=== PATIENT | female | born 1955 | race Two or more races ===

== ENCOUNTER 2024-11-06 13:24 | Outpatient (AMB) | payer MEDICARE, MEDICAID, SELFPAY ==
--- NOTE | 2024-11-06 13:56 | ORTHONT_ITS ---
Vital signs 11/06/24 13:57 Height 1.55 m Height Method Stated Weight 81.448 kg Weight Measurement Method Standing Scale BMI 33.9 BP 126/81 Blood Pressure Source Automatic Cuff Blood Pressure Location Left Upper Arm Position Sitting Respiration 18 Pulse 0 L Pulse Source Monitor Temp 97.6 F Temp Source Temporal Artery Scan Pulse Oximetry (%) 97 Oxygen Delivery Method Room Air Med/Allergies Allergies & Medications Allergies No Known Allergies Allergy (Verified 11/06/24 13:58) Medication Reconciliation atorvastatin 20 mg tablet 20 mg PO QDAY 09/11/21 [History Confirmed 11/06/24] losartan 25 mg tablet 25 mg PO QDAY 09/11/21 [History Confirmed 11/06/24] Exam Exam Patient is in no acute distress and is cooperative with the examination today. Breathing is nonlabored. In no respiratory distress. Bilateral extremities were evaluated and demonstrates sensation intact to light touch. Palpable pedal pulses are present. No significant edema is present. Bilateral hips were examined. The patient has no pain with log roll of the hips. Internal rotation to 30 degrees and external rotation to 30 degrees is painless. Negative FADIR. The left knee was examined. The left knee is in varus alignment. Range of motion from 0-115 degrees. Knee is stable to varus and valgus as well as AP translation with <5mm. Patient has a negative McMurrays. There is no pain with patellofemoral compression and no crepitus noted. The knee is tender to palpation medially. The right knee was also examined. The right knee is in varus alignment. Range of motion from 0-120 degrees. Knee is stable to varus and valgus as well as AP translation with <5mm. Patient has a negative McMurrays. There is no pain with patellofemoral compression and no crepitus noted. The knee is tender to palpation medially. I have x-rays from 2 years ago. This demonstrates left knee arthritis of significant severity and complete joint space obliteration medially. Assessment and Plan Problem List (1) Arthritis of left knee: Status: Acute Plan: Patient is a 69-year-old female with left knee pain and left knee arthritis of significant severity. She has failed conservative treatment including over 6 injections, anti-inflammatories, and formal physical therapy for several months which only increased the pain. She reports that she would like to consider getting a total knee replacement. I would like to get new x-rays as the last ones are several years old but did demonstrate [id number] arthritis. We discussed total knee replacement in great detail today. I would like to still get new x-rays to see what it currently looks like The nature and purpose of the total knee replacement, alternative method(s) of treatment, the material risks involved, and the possibility of complications were fully explained to the patient. The patient does NOT have any of the following contraindications to TKA: - Active infection of the knee joint, OR - Active systemic bacteremia, OR - Active skin infection or open wound at surgical site, OR - Neuropathic arthritis, OR - Severe, rapidly progressive neurological disease, OR - Severe medical condition that makes risks of surgery outweigh the potential benefit The patient was told the most common risks and complications associated with a total knee replacement include, but are not limited to: blood clots in the leg, fatal pulmonary embolism, dislocation of the prosthesis, intraoperative and postoperative fractures of the femur or tibia, infection, failure of the prosthesis or grafting materials, complications from anesthesia, reactions to blood transfusions, postoperative leg length inequality, instability of the knee replacement, nerve damage or injury, vascular injury, delayed wound healing, infection, other injury or even . In addition, there are risks associated with anesthesia given during this operation. Also, the patient was told that after undergoing a total knee replacement there may still be persistent pain or disability. The patient was informed that the success of this operation in part depends upon the mechanical devices which are going to be implanted and that these devices can fail or malfunction, and may need to be repaired or replaced and there are no guarantees as to the longevity of this device or its parts and that it or its parts could fail prematurely. The patient was also notified that during the course of surgery, there may be a need to use bone graft from donors, and that any bone graft used will be carefully screened for communicable diseases, including AIDS, hepatitis, Te-Creutzfeldt, or other diseases, but despite the screening procedures, there is a small chance that they could contract one of these diseases. Finally, the patient was asked to follow completely and fully with all advice and recommended treatments, and that recovery and ultimate outcome are affected by their compliance with recommended treatment. We discussed the risks, benefits and treatment alternatives, and the patient is interested in proceeding with surgery. We will try to set this up as expeditiously as possible. Advanced Care Planning Discussion Advance care planning discussed with:: patient and child Office Procedures GNS Level of Care Nursing/Assessment Patient Status: Initial/New Patient Nursing Assessment/Reassesment: Medication Reconciliation, Update PMH in EMR and Vital Signs Coordination of Care: Complex Care and Chronic Disease 1-5, Education Complex Pt/Fam, Consent,records obtained, informed consent, 1 Ins Authorization, Lab and Imaging orders, Results/Orders obtained and Staff clarify orders New Patient Charge New Patient Point Assignment: 1124 New Patient Point Charge: INSTRUMENTATION AND CONTROL TECHNICIAN Level 4 (3059-8303) MA Intake Visit Data Collection New Patient or Established: Established Patient (seen at [facility] within 3 years) Reason for Visit:: BL KNEE PAIN Seen by Clinical Staff ONLY (RN/MA): No Waiter/Waitress Informal Required: Yes PCP or OBGYN visit in last 3 months: Yes Hx Now: No Do You Feel Safe at Home: Yes Authorities Contacted: N/A Questionairres Past Medical History Past Medical History Have you ever been diagnosed with any of the following: Neurological Problems Seizures: No Cardiology Problems Hypercholesterolemia: Yes (TAKES MED) Congestive Heart Failure: No Edema: No Cellulitis: No Hypertension: Yes (TAKES MED) Varicose Veins: No Respiratory Problems Chronic Obstructive Pulmonary Disease (COPD): No Pneumonia: No Tuberculosis: No Sleep Apnea: No Smoking: No Smoking Exposure: No Stomache/Intestinal Problems Hepatitis: No Pancreatitis: No Gall Bladder Disease: No Hemorrhoids: No Gastroesophageal Reflux Disease: No Obesity: Yes Genital/Urinary Problems Renal Disease: No Reproductive Problems Previous Pregnancies: Yes (X7) Head,Eye,Nose,Throat Problems Cataracts: Yes ([facility]ARMITA WILL COME IN FOR LEFT EYE SURG) Endocrine Problems Diabetes Mellitus Type 1: Yes Diabetes Mellitus Type 2: No Other Problems Hospitalization: No Shingles: No Falls: No Blood Transfusions: No Blood Transfusion Reaction: No Anesthesia Reactions: No Chemotherapy: No Radiation Therapy: No MRSA: No Chicken Pox: No Measles: No Mumps: No Cancer: No Surgical History Pacemaker: No Subjective Visit Visit for: new patient and knee Immunization / Flu Flu Vaccine in the Last 12 Months: Yes Flu Vaccine Exclusion Criteria: Already Received History of Present Illness Chief complaint: Bilateral knee pain Patient is a pleasant 69-year-old female with a left greater than right knee pain that has been ongoing for several years. She has tried over 6 injections, ibuprofen, and formal physical therapy for several months. The pain continues to persist. She would like to discuss surgical options as she has tried everything for several years already. Pain Pain level (0-10): 6 Pain duration: CONSTANT Pain location: inside (medial), outside (lateral), anterior and posterior Pain quality: dull and aching Pain timing: increases with activity Ambulatory data Ambulatory device: none Treatments Number of previous injections: 6 Improvement with previous injections: No Number of Physical Therapy sessions: 12 Improvement with PT: No Improvement with NSAIDS: no Review of Systems Review of Systems: All systems negative unless otherwise noted in HPI.
[2024-11-06 13:57] VITALS: BP 126/81; PULSE 0; RESP 18; TEMP 36.4; O2SAT 97; BMI 33.9
--- NOTE | 2024-11-06 13:58 | XR_ITS ---
Examination: Bilateral knees 2 views Right lateral knee left lateral knee 2 views Bilateral axial knees single view TECHNIQUE: Bilateral AP knees standing single view, bilateral PA knees standing single view flexion Standing right lateral knee left lateral knee 2 views Bilateral axial knees single view total 5 views Date and time: November 06, 2024 1443 hours Comparison November 11, 2022 FINDINGS: Moderate osteopenia Moderate narrowing medial joint space right knee Moderate osteoarthritis right patellofemoral joint Advanced narrowing medial joint space left knee Significant osteoarthritis lateral and left patellofemoral joint IMPRESSION: Advanced narrowing medial joint space left knee Significant osteoarthritis lateral and left patellofemoral joints
== END 2024-11-06 14:07 | disposition home or self-care (01) ==
LOC: HODSRG 13:24
PROVIDERS: PCP Physician Assistant Medical; Referring Provider Physician Assistant Medical; Supervising Provider Orthopaedic Surgery Adult Reconstructive Orthopaedic Surgery; Visit Provider Orthopaedic Surgery Adult Reconstructive Orthopaedic Surgery
DX: M17.12 Unilateral primary osteoarthritis, left knee (principal); M25.562 Pain in left knee; I10 Essential (primary) hypertension; E78.00 Pure hypercholesterolemia, unspecified; E10.9 Type 1 diabetes mellitus without complications
CPT/HCPCS: 73564; 99204; G0463

== ENCOUNTER 2024-11-29 09:41 | Outpatient (AMB) | payer MEDICARE, MEDICAID, SELFPAY ==
[2024-11-29 09:51] VITALS: BP 148/87; PULSE 61; RESP 18; TEMP 36.4; O2SAT 97; BMI 33.0
--- NOTE | 2024-11-29 09:51 | PD.ORTHCLVIS ---
Vital signs 11/29/24 09:51 Height 1.55 m Height Method Stated Weight 79.464 kg Weight Measurement Method Standing Scale BMI 33.0 BP 148/87 H Blood Pressure Source Automatic Cuff Blood Pressure Location Right Upper Arm Position Sitting Respiration 18 Pulse 61 Pulse Source Monitor Temp 97.5 F Temp Source Temporal Artery Scan Pulse Oximetry (%) 97 Oxygen Delivery Method Room Air Med/Allergies Allergies & Medications Allergies No Known Allergies Allergy (Verified 11/29/24 10:01) Medication Reconciliation atorvastatin 20 mg tablet 20 mg PO QDAY 09/11/21 [History Confirmed 11/29/24] losartan 25 mg tablet 25 mg PO QDAY 09/11/21 [History Confirmed 11/29/24] Exam Exam Patient is in no acute distress and is cooperative with the examination today. Breathing is nonlabored. In no respiratory distress. Bilateral extremities were evaluated and demonstrates sensation intact to light touch. Palpable pedal pulses are present. No significant edema is present. Bilateral hips were examined. The patient has no pain with log roll of the hips. Internal rotation to 30 degrees and external rotation to 30 degrees is painless. Negative FADIR. The left knee was examined. The left knee is in varus alignment. Range of motion from 0-115 degrees. Knee is stable to varus and valgus as well as AP translation with <5mm. Patient has a negative McMurrays. There is no pain with patellofemoral compression and no crepitus noted. The knee is tender to palpation medially. The right knee was also examined. The right knee is in varus alignment. Range of motion from 0-120 degrees. Knee is stable to varus and valgus as well as AP translation with <5mm. Patient has a negative McMurrays. There is no pain with patellofemoral compression and no crepitus noted. The knee is tender to palpation medially. I have x-rays from 2 years ago. This demonstrates left knee arthritis of significant severity and complete joint space obliteration medially. Assessment and Plan Problem List (1) Arthritis of left knee: Status: Acute Plan: Patient is a 69-year-old female with left knee pain and left knee arthritis of significant severity. She has failed conservative treatment including over 6 injections, anti-inflammatories, and formal physical therapy for several months which only increased the pain. She has significant left knee arthritis on xray The nature and purpose of the total knee replacement, alternative method(s) of treatment, the material risks involved, and the possibility of complications were fully explained to the patient. The patient does NOT have any of the following contraindications to TKA: - Active infection of the knee joint, OR - Active systemic bacteremia, OR - Active skin infection or open wound at surgical site, OR - Neuropathic arthritis, OR - Severe, rapidly progressive neurological disease, OR - Severe medical condition that makes risks of surgery outweigh the potential benefit The patient was told the most common risks and complications associated with a total knee replacement include, but are not limited to: blood clots in the leg, fatal pulmonary embolism, dislocation of the prosthesis, intraoperative and postoperative fractures of the femur or tibia, infection, failure of the prosthesis or grafting materials, complications from anesthesia, reactions to blood transfusions, postoperative leg length inequality, instability of the knee replacement, nerve damage or injury, vascular injury, delayed wound healing, infection, other injury or even . In addition, there are risks associated with anesthesia given during this operation. Also, the patient was told that after undergoing a total knee replacement there may still be persistent pain or disability. The patient was informed that the success of this operation in part depends upon the mechanical devices which are going to be implanted and that these devices can fail or malfunction, and may need to be repaired or replaced and there are no guarantees as to the longevity of this device or its parts and that it or its parts could fail prematurely. The patient was also notified that during the course of surgery, there may be a need to use bone graft from donors, and that any bone graft used will be carefully screened for communicable diseases, including AIDS, hepatitis, Te-Creutzfeldt, or other diseases, but despite the screening procedures, there is a small chance that they could contract one of these diseases. Finally, the patient was asked to follow completely and fully with all advice and recommended treatments, and that recovery and ultimate outcome are affected by their compliance with recommended treatment. We discussed the risks, benefits and treatment alternatives, and the patient is interested in proceeding with surgery. We will try to set this up as expeditiously as possible. Advanced Care Planning Discussion Advance care planning discussed with:: patient and child Office Procedures GNS Level of Care Nursing/Assessment Patient Status: Established Patient Nursing Assessment/Reassesment: Medication Reconciliation, Update PMH in EMR and Vital Signs Coordination of Care: Complex Care and Chronic Disease 1-5, Education Complex Pt/Fam, Consent,records obtained, informed consent, 2-3 Insurance Autorizations needed, Results/Orders obtained and Staff clarify orders Special Needs: Language special needs Established Patient Charge Established Patient Point Assignment: 115 Established Patient Point Charge: EP Level 3 (80-115) MA Intake Visit Data Collection New Patient or Established: Established Patient (seen at [facility] within 3 years) Reason for Visit:: PRE-OP LEFT TKA Seen by Clinical Staff ONLY (RN/MA): No Verbal consent obtained for Telemed visit?: No Fire Loss Prevention Engineer Required: No PCP or OBGYN visit in last 3 months: Yes Hx Now: No Do You Feel Safe at Home: Yes Authorities Contacted: N/A Questionairres Past Medical History Past Medical History Have you ever been diagnosed with any of the following: Neurological Problems Seizures: No Cardiology Problems Hypercholesterolemia: Yes (TAKES MED) Congestive Heart Failure: No Edema: No Cellulitis: No Hypertension: Yes (TAKES MED) Varicose Veins: No Respiratory Problems Chronic Obstructive Pulmonary Disease (COPD): No Pneumonia: No Tuberculosis: No Sleep Apnea: No Smoking: No Smoking Exposure: No Stomache/Intestinal Problems Hepatitis: No Pancreatitis: No Gall Bladder Disease: No Hemorrhoids: No Gastroesophageal Reflux Disease: No Obesity: Yes Genital/Urinary Problems Renal Disease: No Reproductive Problems Previous Pregnancies: Yes (X7) Head,Eye,Nose,Throat Problems Cataracts: Yes ([facility] WILL COME IN FOR LEFT EYE SURG) Endocrine Problems Diabetes Mellitus Type 1: Yes Diabetes Mellitus Type 2: No Other Problems Hospitalization: No Shingles: No Falls: No Blood Transfusions: No Blood Transfusion Reaction: No Anesthesia Reactions: No Chemotherapy: No Radiation Therapy: No MRSA: No Chicken Pox: No Measles: No Mumps: No Cancer: No Surgical History Pacemaker: No Subjective Visit Visit for: new patient and knee Immunization / Flu Flu Vaccine in the Last 12 Months: Yes Flu Vaccine Exclusion Criteria: Already Received History of Present Illness Chief complaint: Bilateral knee pain Patient is a pleasant 69-year-old female with a left greater than right knee pain that has been ongoing for several years. She has tried over 6 injections, ibuprofen, and formal physical therapy for several months. The pain continues to persist. The pain is miserable and she would like to proceed with surgery Personal History Red flag PMH: BMI BMI Counceling provided: Yes Pain Pain level (0-10): 6 Pain duration: CONSTANT Pain location: inside (medial), outside (lateral), anterior and posterior Pain quality: dull and aching Pain timing: increases with activity Ambulatory data Ambulatory device: cane Treatments Number of previous injections: 6 Improvement with previous injections: No Number of Physical Therapy sessions: 12 Improvement with PT: No Improvement with NSAIDS: no Review of Systems Review of Systems: All systems negative unless otherwise noted in HPI.
== END 2024-11-29 10:04 | disposition home or self-care (01) ==
LOC: HODSRG 09:41
PROVIDERS: PCP Physician Assistant Medical; Referring Provider Physician Assistant Medical; Supervising Provider Orthopaedic Surgery Adult Reconstructive Orthopaedic Surgery; Visit Provider Orthopaedic Surgery Adult Reconstructive Orthopaedic Surgery
DX: M17.12 Unilateral primary osteoarthritis, left knee (principal); M25.562 Pain in left knee; I10 Essential (primary) hypertension; E78.00 Pure hypercholesterolemia, unspecified; E10.9 Type 1 diabetes mellitus without complications
CPT/HCPCS: 99213; G0463

== ENCOUNTER → 2024-11-30 | Outpatient (CLI) | payer MEDICARE, MEDICAID, SELFPAY ==
--- NOTE | 2024-11-30 08:46 | XR_ITS ---
Examination: CT left lower extremity, without contrast. 2-D sagittal reconstructions. 2-D coronal reconstructions. 3-D reconstructions. Date and time of exam:November 30, 2024 0932 hours INDICATIONS: Chronic left knee pain, diagnosis left knee unilateral osteoarthritis several years CTDI: vol (mGy):27.8 DLP: (mGycm):978 Technique: Multiple 1.25 mm axial sections of the left lower extremity without intravenous contrast have been obtained. 2-D sagittal and coronal reconstructions have been obtained. 3-D reconstructions have been obtained. Low dose protocols were performed. One or more of the following dose reduction techniques were used; automated exposure control, adjustment of the mA and/or KV according to patient size, use of iterative reconstruction technique. Findings: Prominent osteopenia Mild to moderate narrowing hip joints bilaterally Severe narrowing medial joint space left knee Significant osteoarthritis lateral patellofemoral joints No fractures IMPRESSION: Severe narrowing medial joint space left knee Significant osteoarthritis lateral and patellofemoral joints left knee is
== END | disposition home or self-care (01) ==
LOC: CDIM 07:22
PROVIDERS: PCP Physician Assistant Medical; Referring Provider Orthopaedic Surgery Adult Reconstructive Orthopaedic Surgery; Visit Provider Orthopaedic Surgery Adult Reconstructive Orthopaedic Surgery
DX: M17.12 Unilateral primary osteoarthritis, left knee (principal)
CPT/HCPCS: 73700

== ENCOUNTER 2024-12-12 07:00 | Day surgery (SDC) | payer MEDICARE, MEDICAID, SELFPAY ==
[2024-12-11 08:22] VITALS: BMI 34.2
[2024-12-11 09:09] LABS: Basophils % (Auto) 1 % (0-2.5); Eosinophils # (Auto) 0.2 Thou/mm3 (0.0-0.5); Eosinophils % (Auto) 3 % (0-10); Hematocrit 38.5 % (36.0-46.0); Hemoglobin 14.2 g/dL (12.0-16.0); Immature Granulocytes % (Auto) 0 % (0-0); Immature Granulocytes Auto 0.02 Thou/mm3 (0.00-0.00); Lymphocytes # (Auto) 2.9 Thou/mm3 (1.0-4.8); Lymphocytes % (Auto) 42 % (10-50); Mean Corpuscular HGB Conc 36.9 g/dl (31.0-37.0); Mean Corpuscular Hemoglobin 30.9 pg (25.0-35.0); Mean Corpuscular Volume 84 fL (80-100); Monocytes # (Auto) 0.4 Thou/mm3 (0.0-0.8); Monocytes % (Auto) 5 % (0-12); Neutrophils # (Auto) 3.5 Thou/mm3 (1.8-7.7); Neutrophils % (Auto) 50 % (37-80); Nucleated Red Blood Cell % 0 /100 WBC (0); Platelet Count 189 Thou/mm3 (140-440); RDW Standard Deviation 39.3 fL (36.4-46.3); Red Blood Count 4.59 Miln/mm3 (4.00-5.20); White Blood Count 7.1 Thou/mm3 (3.6-11.0)
[2024-12-11 09:22] LABS: Partial Thromboplastin Time 26.2 Seconds (22.0-36.0); Prothrombin Time 10.5 Seconds (9.0-12.2)
[2024-12-11 09:32] LABS: Alanine Aminotransferase 11 U/L (10-49); Albumin, Serum 4.4 gm/dL (3.4-4.8); Alkaline Phosphatase 63 U/L (46-116); Anion Gap 10 (7-16); Aspartate Amino Transferase 14 U/L (0-34); BUN/Creatinine Ratio 14 Ratio (12-20); Bilirubin,Total 0.7 mg/dL (0.3-1.2); Blood Urea Nitrogen 10 mg/dL (9-23); Calcium 9.2 mg/dL (8.3-10.6); Calcium (Corrected) 9.2 mg/dL (8.5-10.1); Carbon Dioxide 26.7 mMol/L (20.0-31.0); Chloride 105 mMol/L (98-107); Creatinine (Component) 0.7 mg/dL (0.6-1.3); Estimated Creatinine Clearance 70.7 mL/min (>60); Globulin 2.2 gm/dL (2.3-3.5); Glucose 117 mg/dL (74-106); Osmolality,Calculated 283 (275-295); Sodium 142 mMol/L (136-145); Total Protein 6.6 gm/dL (5.7-8.2); eGFR > 60 See Note
[2024-12-12] VITALS (16 sets, daily range): BP systolic 102–141; BP diastolic 59–87; PULSE 70–89; RESP 14–21; TEMP 36.4–36.8; O2SAT 95–99; BMI 34.2; BMI 13.0
[2024-12-12] MEDS: RINGERS LACTATED 1000 ML 1,000 ML 20 ML IV (07:27)
[2024-12-12] MEDS: MELOXICAM 7.5 MG TABLET PO (07:27)
[2024-12-12] MEDS: PREGABALIN 75 MG CAPSULE PO (07:27)
[2024-12-12] MEDS: ACETAMINOPHEN 325 MG TABLET 650 MG PO (07:27)
--- NOTE | 2024-12-12 11:57 | PD.SUROPNT ---
Date of Procedure 12/12/24 Pre Op Diagnosis left knee osteoarthritis Post Op Diagnosis left knee osteoarthritis Procedure left total knee replacement bishop Findings full thickness cartilage loss and osteophytes Procedure Description Indication: The patient is a 69 year old who has a long history of left knee pain. X-rays show degenerative arthritis involving the knee. Over the past several years the patient has had increasing pain, progressive limitation in function. He has failed conservative measures including activity modification, physical therapy, injections, anti-inflammatories, and assistive devices. After a lengthy discussion of the risks and benefits, the patient presents now for total knee replacement. The nature and purpose of the total knee replacement, alternative method(s) of treatment, the material risks involved, and the possibility of complications were fully explained to the patient. The patient was told the most common risks and complications associated with a total knee replacement include, but are not limited to blood clots in the leg, fatal pulmonary embolism, dislocation of the prosthesis, intraoperative and postoperative fractures of the femur or tibia, infection, failure of the prosthesis or grafting materials, complications from anesthesia, reactions to blood transfusions, postoperative leg length inequality, instability of the knee replacement, nerve damage or injury, vascular injury, delayed wound healing, infections, other injury or even . In addition, there are risks associated with anesthesia given during this operation, temporary or permanent numbness on the skin lateral to the incision can be a complication unique to total knee surgery, and kneeling can be painful after knee replacement surgery. Also, the patient was told that after undergoing a total knee replacement there may still be pain or disability. We discussed with the patient that we will be using a robot-assisted technology. We discussed that there is a possibility of converting to manual instrumentation. The patient was informed that the success of this operation in part depends upon the mechanical devices which are going to be implanted and that these devices can fail or malfunction, and may need to be repaired or replaced and there are no guarantees as to the longevity of this device or its part and that it or its parts could fail prematurely. Finally, the patient was asked to follow completely and fully with all advice and recommended treatments, and that recovery and ultimate outcome are affected by their compliance with recommended treatment. Surgical technique: Patient was marked and consented in the pre-operative area. The patient was brought to the operating room and placed on the operating table in a supine position. Prior to positioning, a timeout procedure was performed between the surgeon, the anesthesiologist, and the nursing staff where the patient and the operative side were identified and confirmed. After adequate general anesthetic was obtained, the left lower extremity was prepped and draped in the usual sterile fashion. A weight based dose of Cefazolin were administered within 1 hour prior to incision. The robot was preregistered and calirated before the incision. The extremity was exsanguinated with an esmarch badge and tourniquet inflated to 250mmHg. A midline incision was made. A median parapatellar arthrotomy was made. The patella was subluxed laterally. A medial release was performed to expose the medial tibia. His femoral and tibial pins were placed through an intra incisional manner for both cases. Every effort was made to ensure that the distalmost aspect of the pin was hung in the second cortex. The arrays were then tightened several times to ensure that it was fixed for the remainder of the case. Both femoral and tibial checkpoints were then placed. We then went through the registration process of the bone. We then assessed the knee deformity and attempted to correct it. We also used the robot to aid in judging laxity in both extension and flexion. Final based on laxity and alignment we changed the preoperative assessment to obtain proper proper implant positioning and to correct deformity. Attention was then placed to the tibia. We made a tibial cut using the robot ensuring that both the MCL and the patella tendon were protected with retractors. We then went to the femur and made the posterior cut followed by the anterior cut and the anterior chamfer. The bone was then removed and we made a distal femur cut and a posterior chamfer cut. We verified all cuts. A trial reduction was performed with a size 3 femoral component and a size [2] keeled tibial component. The patella tracked centrally, and no lateral retinacular release was necessary. The trial implants were removed. The arrays, pins, and checkpoints were all removed. We performed a verification that all pins were removed. The cut bone surfaces were lavaged. A size [3] left femoral component, a size [2] keeled tibial component were impacted into position. The knee was felt to be well balanced in the sagittal and coronal plane. The final 2x10 mm cruciate-substituting articular insert was impacted into the tibial tray. The knee was brought out to full extension, flexed up to 120 degrees. It was stable to varus and valgus stress and appropriately balanced in flexion and extension. The wounds were copiously irrigated following deflation of tourniquet. The medial retinaculum was reapproximated with #1 vicryl and quill. The subcutaneous tissues were closed with 0 and 2-0 interrupted Vicryl. The skin was closed with 3-0 Monofilament V loc suture. A sterile dressing was applied. The patient was transferred to a bed and brought to recovery in stable condition. The patient tolerated the procedure well. There were no intraoperative complications. Sponge and needle counts were correct times 2. As the attending surgeon, I attest I was present and performed the entire operation. Grafts/Implants Size 3 CR Femur Size 2 Tibia 10mm poly CS Anesthesia spinal Implants tayo Pathology / specimen None Pathology comment: none Estimated Blood Loss 150 Condition Stable Disposition same day Surgeon Zane Deng MD Surgical Staff Operation Date: 12/12/24 10:45 Case Staff Anesthesiologist: Randy Peterson RNrn gastroenterology: Soraida Coulter
--- NOTE | 2024-12-12 11:59 | XR_ITS ---
Examination: Left knee 2 views Technique one AP lateral left knee 2 views Date and time: December 12, 2024 12:46 PM INDICATIONS: Total left knee replacement today. FINDINGS: Total left knee arthroplasty. Satisfactory alignment. Moderate osteopenia. No fracture. IMPRESSION: Total left knee arthroplasty with satisfactory alignment
--- NOTE | 2024-12-12 12:10 | SUR.PHASEI ---
1210 Patient arrived to recovery resting comfortably in [facility], drowsy and able to arouse with verbal prompting, on oxygen 4L via nasal cannula, breathing unlabored, vital signs stable, denies pain, dressing intact to left knee; prineo, telfa, abd, webril, anthony wraps, no bleeding noted, bilateral dorsalis pedis pulses present when palpated, post spinal anesthesia assessment via ice, patient has dermatome sensation at L1-groin, will continue to monitor, denies nausea, report received from Dr. Peterson and Brian RN
--- NOTE | 2024-12-12 12:49 | SUR.PHASEI ---
1249 XRAY complete per MD order
--- NOTE | 2024-12-12 13:00 | SUR.PHASEI ---
1300 patients daughter at bedside with patient
--- NOTE | 2024-12-12 13:05 | SUR.PHASEI ---
1305 report given to Adri THOMAS
--- NOTE | 2024-12-12 13:05 | SUR.PHASEI ---
1305: Report received from Mary Dsouza RN. Pt. AAOx5, vitals stable, breathing unlabored, complaint of headache, will give ofirmev, dressing to left knee CDI, no active bleed noted, pt. able to move left foot, left cap refill less than 3 seconds, left dorsalis pedis pulse strong and regular.
[2024-12-12] MEDS: ACETAMINOPHEN IVPB 1,000 MG/100 ML VIAL 250 MG IV (13:13)
--- NOTE | 2024-12-12 13:15 | PD.ANESPROG ---
Documentation for date of: 12/12/24 ANESTHESIA NOTE: Patient had spinal anesthesia (without intrathecal Duramorph) and L adductor canal block and MAC for L TKA earlier today. She did well intra-op and is currently in PACU doing well, alert, calm, NAD, head elevated about 60 deg, VSS, denied any pain specifically post op knee pain and chest pain, did endorse mild headache. Her daughter is at bedside and I educated her regarding PDPH. Randy Peterson MD Anesthesia Progress Note Progress Note Most recent Vital Signs: Last Vital Signs Temp 97.9 F 12/12/24 12:10 Pulse 80 12/12/24 12:10 Resp 15 12/12/24 12:10 BP 102/65 12/12/24 12:10 Pulse Ox 95 12/12/24 12:10 O2 Flow Rate 4 12/12/24 12:10
--- NOTE | 2024-12-12 13:43 | SUR.PHASEII ---
1343: Report given to Mary Dsouza RN to resume care of pt.
--- NOTE | 2024-12-12 13:43 | SUR.PHASEI ---
1343 Report received from Adri THOMAS
--- NOTE | 2024-12-12 14:58 | SUR.PHASEII ---
6728 PT notified patient post spinal anesthesia complete, patient has dermatome sensation at S2 perineum
--- NOTE | 2024-12-12 15:05 | SUR.PHASEII ---
1505 patients at bedside with patient
--- NOTE | 2024-12-12 15:42 | SUR.PHASEII ---
1542 Patient cleared by physical therapist Po to proceed with discharge
--- NOTE | 2024-12-12 16:16 | SUR.PHASEII ---
1616 Patient meets discharge criteria from recovery, awake and alert, breathing unlabored, vital signs stable, dressing intact; no bleeding noted, denies pain, drinking fluids and ate a sandwich and fruit; denies nausea, patient assisted with dressing into her clothing by this leader writer, patient signed limited proficiency statement for her daughter to wireless technician Bulgarian to her, discharge instructions given to patient and patients daughter, daughter signed discharge instructions. Patient given all her belongings prior to discharge, transported via wheelchair and left in a private vehicle.
== END 2024-12-12 16:16 | disposition home health service (06) ==
PROVIDERS: Anesthesiology; PCP Physician Assistant Medical; Referring Provider Orthopaedic Surgery Adult Reconstructive Orthopaedic Surgery; Visit Provider Orthopaedic Surgery Adult Reconstructive Orthopaedic Surgery
PROC: (CPT 27447; principal; 2024-12-12 10:30)
DX: M17.12 Unilateral primary osteoarthritis, left knee (principal); M25.762 Osteophyte, left knee
CPT/HCPCS: 27447; 20985; 36415; 73560; 80053; 85025; 85610; 85730; 97162; A4217; C1713; C1776; J0131; J0690; J1100; J2250; J2704; J2795; J3010; J3490; J7120; J7999; A4648; A4649; A9270

== ENCOUNTER 2024-12-27 14:39 | Outpatient (AMB) | payer MEDICARE, MEDICAID, SELFPAY ==
--- NOTE | 2024-12-27 14:53 | ORTHONT_ITS ---
Vital signs 12/27/24 14:54 Height 1.52 m Height Method Stated Weight 78.046 kg Weight Measurement Method Standing Scale BMI 33.7 BP 120/77 Blood Pressure Source Automatic Cuff Blood Pressure Location Left Upper Arm Position Sitting Respiration 19 Pulse 96 Pulse Source Monitor Temp 97.5 F Temp Source Temporal Artery Scan Pulse Oximetry (%) 98 Oxygen Delivery Method Room Air Med/Allergies Allergies & Medications Allergies No Known Allergies Allergy (Verified 12/27/24 14:55) Medication Reconciliation atorvastatin 20 mg tablet 20 mg PO QDAY 09/11/21 [History Confirmed 12/27/24] losartan 25 mg tablet 25 mg PO QDAY 09/11/21 [History Confirmed 12/27/24] ibuprofen 600 mg tablet 600 mg PO Q8H PRN pain 12/11/24 [History Confirmed 12/27/24] metformin 1,000 mg tablet 1,000 mg PO BID 12/11/24 [History Confirmed 12/27/24] omeprazole 20 mg capsule,delayed release 20 mg PO DAILY 12/11/24 [History Confirmed 12/27/24] aspirin 81 mg tablet,delayed release 81 mg PO BID #60 tabs 12/12/24 [Rx C onfirmed 12/27/24] doxycycline hyclate 100 mg tablet 100 mg PO BID #14 tabs 12/12/24 [Rx Confirmed 12/27/24] gabapentin 300 mg capsule 300 mg PO .qhs #30 caps 12/12/24 [Rx Confirmed 12/27/24] sennosides 8.6 mg-docusate sodium 50 mg tablet (Senna-S) 1 tab-cap PO QDAY #30 tabs 12/12/24 [Rx Confirmed 12/27/24] acetaminophen 500 mg tablet (Acetaminophen Extra Strength) 1,000 mg (2 x 500 mg) PO Q6H PRN pain #90 tabs 12/27/24 [Rx] oxycodone 5 mg tablet 5 mg PO Q6H PRN pain #28 tabs 12/27/24 [Rx] Exam Exam Patient is in no acute distress and is cooperative with the examination today. Breathing is nonlabored. In no respiratory distress. Bilateral extremities were evaluated and demonstrates sensation intact to light touch. Palpable pedal pulses are present. No significant edema is present. Bilateral hips were examined. The patient has no pain with log roll of the hips. Internal rotation to 30 degrees and external rotation to 30 degrees is painless. Negative FADIR. Left knee incision is clean dry intact. Range of motion is 0 to 95 degrees Assessment and Plan Problem List (1) Arthritis of left knee: Status: Acute Plan: Patient is a 69-year-old female with left knee pain and significant left knee arthritis status post left total knee replacement. We recommend continued physical therapy. We will see her back in approximately 4 weeks We will see the patient back in approximately 4 weeks for routine follow-up. He should continue with physical therapy Advanced Care Planning Discussion Advance care planning discussed with:: patient Office Procedures GNS Level of Care Nursing/Assessment Patient Status: Established Patient Nursing Assessment/Reassesment: Medication Reconciliation, Update PMH in EMR and Vital Signs Coordination of Care: Complex Care and Chronic Disease 1-5, Education Complex Pt/Fam, Consent,records obtained, informed consent, Results/Orders obtained and Staff clarify orders Special Needs: Language special needs Established Patient Charge Established Patient Point Assignment: 95 Established Patient Point Charge: EP Level 3 (80-115) MA Intake Visit Data Collection New Patient or Established: Established Patient (seen at [facility] within 3 years) Reason for Visit:: 2 WEEK POST OP L TKA Seen by Clinical Staff ONLY (RN/MA): No Ship'S Officer Required: Yes PCP or OBGYN visit in last 3 months: Yes Hx Now: No Do You Feel Safe at Home: Yes Authorities Contacted: N/A Questionairres Past Medical History Past Medical History Have you ever been diagnosed with any of the following: Neurological Problems Seizures: No Cardiology Problems Hypercholesterolemia: Yes Congestive Heart Failure: No Edema: No Cellulitis: No Hypertension: Yes Varicose Veins: No Respiratory Problems Chronic Obstructive Pulmonary Disease (COPD): No Pneumonia: No Tuberculosis: No Sleep Apnea: No Smoking: No Smoking Exposure: No Stomache/Intestinal Problems Hepatitis: No Pancreatitis: No Gall Bladder Disease: No Hemorrhoids: No Gastroesophageal Reflux Disease: No Obesity: Yes Genital/Urinary Problems Renal Disease: No Kidney Stones: Yes Reproductive Problems Previous Pregnancies: Yes (X7) Musculoskeletal Problems Arthritis: Yes Head,Eye,Nose,Throat Problems Cataracts: Yes (Left had surgery) Endocrine Problems Diabetes Mellitus Type 1: Yes Diabetes Mellitus Type 2: No Other Problems Hospitalization: No Shingles: No Falls: No Blood Transfusions: No Blood Transfusion Reaction: No Anesthesia Reactions: No Chemotherapy: No Radiation Therapy: No MRSA: No Chicken Pox: No Measles: No Mumps: No Cancer: No Surgical History Total Knee Replacement: Yes (LEFT 12/2024) Pacemaker: No Subjective Visit Visit for: follow up visit, post op #1 and knee Immunization / Flu Flu Vaccine in the Last 12 Months: No Flu Vaccine Exclusion Criteria: No Exclusion Criteria History of Present Illness Chief complaint: Bilateral knee pain Patient is a pleasant 69-year-old female with a left greater than right knee pain that has been ongoing for several years. She is doing well s/p L TKA. Personal History Red flag PMH: BMI BMI Counceling provided: Yes Pain Pain level (0-10): 8 Pain duration: WITH MOVEMENT Pain location: anterior Pain quality: dull Pain timing: increases with activity Associated signs & symptoms: numbness Ambulatory data Ambulatory device: walker Treatments Number of previous injections: 6 Improvement with previous injections: No Number of Physical Therapy sessions: 12 Improvement with PT: No Improvement with NSAIDS: no Review of Systems Review of Systems: All systems negative unless otherwise noted in HPI.
[2024-12-27 14:54] VITALS: BP 120/77; PULSE 96; RESP 19; TEMP 36.4; O2SAT 98; BMI 33.7
== END 2024-12-27 15:09 | disposition home or self-care (01) ==
LOC: HODSRG 14:39
PROVIDERS: PCP Physician Assistant Medical; Referring Provider Physician Assistant Medical; Supervising Provider Orthopaedic Surgery Adult Reconstructive Orthopaedic Surgery; Visit Provider Orthopaedic Surgery Adult Reconstructive Orthopaedic Surgery
DX: M17.12 Unilateral primary osteoarthritis, left knee (principal); M25.562 Pain in left knee; Z96.652 Presence of left artificial knee joint; I10 Essential (primary) hypertension; E78.00 Pure hypercholesterolemia, unspecified; E10.9 Type 1 diabetes mellitus without complications
CPT/HCPCS: 99213; G0463

== ENCOUNTER 2025-01-16 10:00 | Outpatient (RCR) | payer MEDICARE, MEDICAID, SELFPAY ==
--- NOTE | 2025-01-15 12:53 | PT.OIERPT ---
PT OP Initial Eval Patient Information Outpatient Physical Therapy Treatment Date: 01/15/25 Visit Reasons: Left TKA Medical Diagnosis: Left Knee OA; Left Knee Pain Treatment Dx #1: Left Knee Mobility Deficits Treatment Dx #2: Left Knee Weakness Start of Care: 01/15/25 Date of Onset: 12/12/24 Smoking Status Smoking Status: Never smoker Initial Assessment Subjective: Pt is a 69 y/o female s/p left TKA 12/12/[address] Deng. Pt recieved ~ 4 sessions of homehealth physical therapy. Pt still has pain (8/10) with activities. Pt has limitation with bending, standing, walking, chores, self care, balance, stairs, steps, and performing recreational activities. Objective: Left Knee AROM: -12 deg to 70 deg Left Knee PROM: -10 deg to 79 deg Left Knee MMTs: grossly 3+/5 Left Hip MMTs: grossly 3+/5 SLS: NT Assessment: Pt demonstrate left knee mobility and strength deficits s/p TKA leading to difficulty with ADLs. Pt will benefit from physical therapy to increase ROM, strength, and work on ambulation. Short Term and Hydraulic Spinner Goals 1) Decrease knee extension lag to -8 deg in 12 wks to improve gait elevator mechanic 2) Increase left knee flexion AROM to 110 deg in 12 wks to be able to perform squatting activities 3) Increase left knee MMTs grossly to 4/5 in 12 wks to be able to perform stairs and steps 4) Increase left hip MMTs grossly to 4-/5 in 12 wks to be able to walk more than 30 mins 5) Increase SLS to 10 sec in 12 wks to be able to perform self care activities 6) Indep with HEP Treatment Plan 1) Manual Therapy 2) Therapeutic Activities 3) Therapeutic Exercises 4) Modalities (ice, heat) 5) Balance Training 6) Gait Training Frequency and Duration: 2 x wk for 12 wks Certification Dates: 01/15/25 to 04/17/25 Procedure Charges OP PT Eval Mod Complex 30 minutes: Yes
--- NOTE | 2025-01-16 11:15 | PT.ODAYNRPT ---
PT Outpatient Daily Note OP Daily Note Outpatient Physical Therapy Treatment Date: 01/16/25 Visit Reasons: Left TKA Subjective: Pt's knee is doing okay and feels stiff. Objective: Left Knee PROM: 90 deg Assessment: patient is slowly improving with knee PROM. Pt was able to use sci fit and bend her knee past 90 deg without hip compensation. Cues to decrease forward leaning with standing calf raise to engage gastroc and put more weight on the knee while performing exercises Plan: Continue with PT Length of Time (minutes) of Treatment: 30 Minutes Procedure Charges Therapeutic Exercise 30 minutes: Yes
== END 2025-01-17 23:59 | disposition home or self-care (01) ==
LOC: CPTX 10:00
PROVIDERS: PCP Orthopaedic Surgery Adult Reconstructive Orthopaedic Surgery; Referring Provider Orthopaedic Surgery Adult Reconstructive Orthopaedic Surgery; Visit Provider Orthopaedic Surgery Adult Reconstructive Orthopaedic Surgery
DX: M25.562 Pain in left knee (principal); R53.1 Weakness; R26.2 Difficulty in walking, not elsewhere classified; R26.89 Other abnormalities of gait and mobility; Z96.652 Presence of left artificial knee joint; M17.12 Unilateral primary osteoarthritis, left knee
CPT/HCPCS: 97110; 97162

== ENCOUNTER 2025-01-25 13:03 | Outpatient (AMB) | payer MEDICARE, MEDICAID, SELFPAY ==
--- NOTE | 2025-01-25 13:20 | ORTHONT_ITS ---
Vital signs 01/25/25 13:23 Height 1.52 m Height Method Stated Weight 78.642 kg Weight Measurement Method Standing Scale BMI 34.0 BP 147/80 H Blood Pressure Source Automatic Cuff Blood Pressure Location Left Upper Arm Position Sitting Respiration 18 Pulse 78 Pulse Source Monitor Temp 97.8 F Temp Source Temporal Artery Scan Pulse Oximetry (%) 97 Oxygen Delivery Method Room Air Med/Allergies Allergies & Medications Allergies No Known Allergies Allergy (Verified 01/25/25 13:24) Medication Reconciliation atorvastatin 20 mg tablet 20 mg PO QDAY 09/11/21 [History Confirmed 01/25/25] losartan 25 mg tablet 25 mg PO QDAY 09/11/21 [History Confirmed 01/25/25] ibuprofen 600 mg tablet 600 mg PO Q8H PRN pain 12/11/24 [History Confirmed 01/25/25] metformin 1,000 mg tablet 1,000 mg PO BID 12/11/24 [History Confirmed 01/25/25] omeprazole 20 mg capsule,delayed release 20 mg PO DAILY 12/11/24 [History Confirmed 01/25/25] doxycycline hyclate 100 mg tablet 100 mg PO BID #14 tabs 12/12/24 [Rx Confirmed 01/25/25] sennosides 8.6 mg-docusate sodium 50 mg tablet (Senna-S) 1 tab-cap PO QDAY #30 tabs 12/12/24 [Rx Confirmed 01/25/25] acetaminophen 500 mg tablet (Acetaminophen Extra Strength) 1,000 mg (2 x 500 mg) PO Q6H PRN pain #90 tabs 12/27/24 [Rx Confirmed 01/25/25] oxycodone 5 mg tablet 5 mg PO Q6H PRN pain #28 tabs 12/27/24 [Rx Confirmed 01/25/25] meloxicam 7.5 mg tablet 7.5 mg PO QDAY #45 tabs 01/25/25 [Rx Confirmed 01/25/25] Exam Exam Patient is in no acute distress and is cooperative with the examination today. Breathing is nonlabored. In no respiratory distress. Bilateral extremities were evaluated and demonstrates sensation intact to light touch. Palpable pedal pulses are present. No significant edema is present. Bilateral hips were examined. The patient has no pain with log roll of the hips. Internal rotation to 30 degrees and external rotation to 30 degrees is painless. Negative FADIR. Left knee incision is clean dry intact. Range of motion is 0 to 85 degrees Assessment and Plan Problem List (1) Arthritis of left knee: Status: Acute Plan: Patient is a 69-year-old female with left knee pain and significant left knee arthritis status post left total knee replacement. We recommend continued physical therapy. We will see him in 4 weeks with motion check. We discussed manipulation uner anesthesia should she not better motion. Plan We discussed the importance of physical therapy and we will see her in 4 weeks. Will get new x-rays as well Advanced Care Planning Discussion Advance care planning discussed with:: patient Office Procedures GNS Level of Care Nursing/Assessment Patient Status: Established Patient Nursing Assessment/Reassesment: Medication Reconciliation, Update PMH in EMR and Vital Signs Coordination of Care: Complex Care and Chronic Disease 1-5, Education Complex Pt/Fam, Consent,records obtained, informed consent, Results/Orders obtained and Staff clarify orders Special Needs: Language special needs Established Patient Charge Established Patient Point Assignment: 95 Established Patient Point Charge: EP Level 3 (80-115) MA Intake Visit Data Collection New Patient or Established: Established Patient (seen at [facility] within 3 years) Reason for Visit:: 4 WEEK POST L TKA Seen by Clinical Staff ONLY (RN/MA): No Control Operator Flow Coat Required: Yes PCP or OBGYN visit in last 3 months: Yes Hx Now: No Do You Feel Safe at Home: Yes Authorities Contacted: N/A Questionairres Past Medical History Past Medical History Have you ever been diagnosed with any of the following: Neurological Problems Seizures: No Cardiology Problems Hypercholesterolemia: Yes Congestive Heart Failure: No Edema: No Cellulitis: No Hypertension: Yes Varicose Veins: No Respiratory Problems Chronic Obstructive Pulmonary Disease (COPD): No Pneumonia: No Tuberculosis: No Sleep Apnea: No Smoking: No Smoking Exposure: No Stomache/Intestinal Problems Hepatitis: No Pancreatitis: No Gall Bladder Disease: No Hemorrhoids: No Gastroesophageal Reflux Disease: No Obesity: Yes Genital/Urinary Problems Renal Disease: No Kidney Stones: Yes Reproductive Problems Previous Pregnancies: Yes (X7) Musculoskeletal Problems Arthritis: Yes Head,Eye,Nose,Throat Problems Cataracts: Yes (Left had surgery) Endocrine Problems Diabetes Mellitus Type 1: Yes Diabetes Mellitus Type 2: No Other Problems Hospitalization: No Shingles: No Falls: No Blood Transfusions: No Blood Transfusion Reaction: No Anesthesia Reactions: No Chemotherapy: No Radiation Therapy: No MRSA: No Chicken Pox: No Measles: No Mumps: No Cancer: No Surgical History Total Knee Replacement: Yes (LEFT 12/2024) Pacemaker: No Subjective Visit Visit for: follow up visit, post op #2 and knee (LEFT) Immunization / Flu Flu Vaccine in the Last 12 Months: No Flu Vaccine Exclusion Criteria: No Exclusion Criteria History of Present Illness Chief complaint: LEFT 4 WEEK TKA FU Patient is a pleasant 69-year-old female with a left greater than right knee pain that has been ongoing for several years. She is doing well s/p L TKA from attending standpoint. Her range of motion is only 0 to 85 degrees. Personal History Red flag PMH: BMI BMI Counceling provided: Yes Pain Pain level (0-10): 0 Ambulatory data Ambulatory device: walker Treatments Number of previous injections: 6 Improvement with previous injections: No Number of Physical Therapy sessions: 12 Improvement with PT: No Improvement with NSAIDS: no Review of Systems Review of Systems: All systems negative unless otherwise noted in HPI.
[2025-01-25 13:23] VITALS: BP 147/80; PULSE 78; RESP 18; TEMP 36.6; O2SAT 97; BMI 34.0
== END 2025-01-25 13:27 | disposition home or self-care (01) ==
LOC: HODSRG 13:03
PROVIDERS: PCP Physician Assistant Medical; Referring Provider Physician Assistant Medical; Supervising Provider Orthopaedic Surgery Adult Reconstructive Orthopaedic Surgery; Visit Provider Orthopaedic Surgery Adult Reconstructive Orthopaedic Surgery
DX: M17.12 Unilateral primary osteoarthritis, left knee (principal); M25.562 Pain in left knee; Z96.652 Presence of left artificial knee joint; I10 Essential (primary) hypertension; E78.00 Pure hypercholesterolemia, unspecified; E10.9 Type 1 diabetes mellitus without complications; E66.9 Obesity, unspecified; Z71.3 Dietary counseling and surveillance; Z68.34 Body mass index [BMI] 34.0-34.9, adult
CPT/HCPCS: 99213; G0463

== ENCOUNTER 2025-02-14 13:00 | Outpatient (RCR) | payer MEDICARE, MEDICAID, SELFPAY ==
--- NOTE | 2025-01-22 13:40 | PT.ODAYNRPT ---
PT Outpatient Daily Note OP Daily Note Outpatient Physical Therapy Treatment Date: 01/22/25 Visit Reasons: Left tka Subjective: Pt c/o stiff and painful knee. Objective: Please see flow sheet for ther ex list. Assessment: Performed PROM to L knee into flexion, pt highly guarded limiting range. Plan: Continue with POC. Length of Time (minutes) of Treatment: 30 Minutes Procedure Charges Therapeutic Exercise 30 minutes: Yes
--- NOTE | 2025-01-24 14:04 | PT.ODAYNRPT ---
PT Outpatient Daily Note OP Daily Note Outpatient Physical Therapy Treatment Date: 01/24/25 Visit Reasons: Left tka Subjective: Pt continues HEP at home. Pt's knee feels okay and a little stiff this afternoon. Pt reports of back of knee cramping with sitting knee flexion stretch Objective: Left Knee Flexion AROM: 93 deg Assessment: slowly progressing with knee flexion AROM. Pt's sitting knee flexion stretch assessed by therapist since reported of posterior knee cramping; cues given to decrease use of hamstring and assist left knee stretch with the right LE by crossing over the left. Pt was able to complete 2 more sitting knee flexion stretch correctly Plan: Continue with PT Length of Time (minutes) of Treatment: 30 Minutes Procedure Charges Therapeutic Exercise 30 minutes: Yes
--- NOTE | 2025-01-29 14:03 | PT.ODAYNRPT ---
PT Outpatient Daily Note OP Daily Note Outpatient Physical Therapy Treatment Date: 01/29/25 Visit Reasons: Left tka Subjective: Pt notice she has more swelling and inflammation around the knee lately. Pt continues her stretching at home Objective: Please see flow chart for list of ther ex performed Assessment: progressing with knee flexion AAROM, however, today patient was guarded with passive knee flexion and extension stretch due to pain. Pt educated regarding swelling and inflammation around the knee which relate to her stopping the use of the walker and now is putting more weight on the left LE with ambulation. Pt gave verbal understanding and will go back to using the walker for another week or so. Plan: Continue with PT Length of Time (minutes) of Treatment: 30 Minutes Procedure Charges Therapeutic Exercise 30 minutes: Yes
--- NOTE | 2025-01-31 15:28 | PT.ODAYNRPT ---
PT Outpatient Daily Note OP Daily Note Outpatient Physical Therapy Treatment Date: 01/31/25 Visit Reasons: Left tka Subjective: Pt reports L knee is doing ok, knee is stiff and painful. Objective: Please see flow sheet for ther ex list. Assessment: Pt highly guarded with knee AAROM flexion interventions. Plan: Continue with POC. Length of Time (minutes) of Treatment: 30 Minutes SUPPLY REQUIREMENTS OFFICER Service Modifier Method I: Divide the number of min of care provided by the SUPPLY REQUIREMENTS OFFICER/JAIRON by the total min of care provided then multiply by 100. If greater than 11 percent modifier is required. Method II: Divide the total time of care provided to patient by 10 (round to the nearest whole number) and add 1 min. to set the minimum time requirement. If treatment total was 60 min., then 10% of 6 min PT CQ modifier applied: CQ Modifier applied Procedure Charges Therapeutic Exercise 30 minutes: Yes
--- NOTE | 2025-02-04 14:27 | PT.ODAYNRPT ---
PT Outpatient Daily Note OP Daily Note Outpatient Physical Therapy Treatment Date: 02/04/25 Visit Reasons: Left tka Subjective: Pt c/o high pain in R knee, reason she keeps use of FWW. Objective: Please see flow sheet for ther ex list. Assessment: Pt demonstrates poor activity tolerance, modified interventions to open chain to accommodate c/o high pain on R knee. Plan: Continue with pOC. Length of Time (minutes) of Treatment: 30 Minutes WIND TURBINE DESIGN ENGINEER Service Modifier Method I: Divide the number of min of care provided by the WIND TURBINE DESIGN ENGINEER/SENIOR ENVIRONMENTAL SCIENTIST by the total min of care provided then multiply by 100. If greater than 11 percent modifier is required. Method II: Divide the total time of care provided to patient by 10 (round to the nearest whole number) and add 1 min. to set the minimum time requirement. If treatment total was 60 min., then 10% of 6 min PT CQ modifier applied: CQ Modifier applied Procedure Charges Therapeutic Exercise 30 minutes: Yes
--- NOTE | 2025-02-06 13:40 | PT.ODAYNRPT ---
PT Outpatient Daily Note OP Daily Note Outpatient Physical Therapy Treatment Date: 02/06/25 Visit Reasons: Left tka Subjective: Pt knee is feeling better. Pt was able to kneel on her knee. Pt mentioned she can also use the toilet easier. Objective: Please see flow chart for list of ther ex performed Assessment: continue to progress with knee flexion AROM. Added side step and monster walk with good tolerance; cues to keep foot straight with exercises Plan: Continue with PT Length of Time (minutes) of Treatment: 30 Minutes Procedure Charges Therapeutic Exercise 30 minutes: Yes
--- NOTE | 2025-02-12 13:44 | PT.ODAYNRPT ---
PT Outpatient Daily Note OP Daily Note Outpatient Physical Therapy Treatment Date: 02/12/25 Visit Reasons: Left tka Subjective: Pt reports L knee is stiff and painful. Objective: Please see flow sheet for ther ex list. Assessment: Pt educated on the importance of performing HEP and encouraged to perform to work toward improving ROM. Pt highly guarded with AAROM interventions into knee flexion. Plan: Continue with pOC. Length of Time (minutes) of Treatment: 30 Minutes MIXER MACHINE FEEDER Service Modifier Method I: Divide the number of min of care provided by the MIXER MACHINE FEEDER/JAIRON by the total min of care provided then multiply by 100. If greater than 11 percent modifier is required. Method II: Divide the total time of care provided to patient by 10 (round to the nearest whole number) and add 1 min. to set the minimum time requirement. If treatment total was 60 min., then 10% of 6 min PT CQ modifier applied: CQ Modifier applied Procedure Charges Therapeutic Exercise 30 minutes: Yes
--- NOTE | 2025-02-14 16:10 | PT.ODS1RPT ---
PT OP Progress/Discharge Note Date of Service: 02/14/25 Progress Note/DC Note Progress Note/Discharge Note: Progress Note Patient Information Visit Reasons: Left tka Medical Diagnosis: Left Knee OA; Left Knee Pain Treatment Dx #1: Left Knee Mobility Deficits Treatment Dx #2: Left Knee Pain Service Continue Service or Discharge: Continue Service Certification Date Certification Dates: 02/14/25 to 05/17/25 Status Subjective: Pt's knee is feeling better, however, still notice some tightness and stiffness. Pt has been able to walk, stand, and perform chores longer with less pain. Objective: Left Knee AROM: -7 deg to 98 deg Left Knee MMTs: grossly 4-/5 Left Hip MMTs: grossly 3+/5 SLS: 3 sec Assessment: Pt is progressing with left knee AROM and strength allowing her to ambulate, perform chores, and light ADLs with less limitation. Pt still has difficulty with balance, prolonged walking, stairs, and recreational activities. Pt will benefit from additional physical therapy to increase ROM, strength, and work on balance; thank you for your referrals. Plan: Continue with PT and add 6 sessions (2 x wk for 3 wks) Procedure Charges Therapeutic Exercise 30 minutes: Yes
== END 2025-02-17 23:59 | disposition home or self-care (01) ==
LOC: CPTX 13:00
PROVIDERS: PCP Orthopaedic Surgery Adult Reconstructive Orthopaedic Surgery; Referring Provider Orthopaedic Surgery Adult Reconstructive Orthopaedic Surgery; Visit Provider Orthopaedic Surgery Adult Reconstructive Orthopaedic Surgery
DX: M25.562 Pain in left knee (principal); R26.2 Difficulty in walking, not elsewhere classified; R26.89 Other abnormalities of gait and mobility; Z96.652 Presence of left artificial knee joint; M17.12 Unilateral primary osteoarthritis, left knee; M25.662 Stiffness of left knee, not elsewhere classified; M62.462 Contracture of muscle, left lower leg
CPT/HCPCS: 97110

== ENCOUNTER 2025-02-26 13:10 | Outpatient (AMB) | payer MEDICARE, MEDICAID, SELFPAY ==
--- NOTE | 2025-02-26 13:21 | ORTHONT_ITS ---
Vital signs 02/26/25 13:22 Height 1.52 m Height Method Stated Weight 79.917 kg Weight Measurement Method Standing Scale BMI 34.6 BP 147/83 H Blood Pressure Source Automatic Cuff Blood Pressure Location Left Upper Arm Position Sitting Respiration 18 Pulse 72 Pulse Source Monitor Temp 97.5 F Temp Source Temporal Artery Scan Pulse Oximetry (%) 96 Oxygen Delivery Method Room Air Med/Allergies Allergies & Medications Allergies No Known Allergies Allergy (Verified 02/26/25 13:30) Medication Reconciliation atorvastatin 20 mg tablet 20 mg PO QDAY 09/11/21 [History Confirmed 02/26/25] losartan 25 mg tablet 25 mg PO QDAY 09/11/21 [History Confirmed 02/26/25] ibuprofen 600 mg tablet 600 mg PO Q8H PRN pain 12/11/24 [History Confirmed 02/26/25] metformin 1,000 mg tablet 1,000 mg PO BID 12/11/24 [History Confirmed 02/26/25] omeprazole 20 mg capsule,delayed release 20 mg PO DAILY 12/11/24 [History Confirmed 02/26/25] doxycycline hyclate 100 mg tablet 100 mg PO BID #14 tabs 12/12/24 [Rx Confirmed 02/26/25] sennosides 8.6 mg-docusate sodium 50 mg tablet (Senna-S) 1 tab-cap PO QDAY #30 tabs 12/12/24 [Rx Confirmed 02/26/25] acetaminophen 500 mg tablet (Acetaminophen Extra Strength) 1,000 mg (2 x 500 mg) PO Q6H PRN pain #90 tabs 12/27/24 [Rx Confirmed 02/26/25] oxycodone 5 mg tablet 5 mg PO Q6H PRN pain #28 tabs 12/27/24 [Rx Confirmed 02/26/25] meloxicam 7.5 mg tablet 7.5 mg PO QDAY #45 tabs 01/25/25 [Rx Confirmed 02/26/25] Exam Exam Patient is in no acute distress and is cooperative with the examination today. Breathing is nonlabored. In no respiratory distress. Bilateral extremities were evaluated and demonstrates sensation intact to light touch. Palpable pedal pulses are present. No significant edema is present. Bilateral hips were examined. The patient has no pain with log roll of the hips. Internal rotation to 30 degrees and external rotation to 30 degrees is painless. Negative FADIR. Left knee incision is clean dry intact. Range of motion is 0 to 105 degrees Assessment and Plan Problem List (1) Arthritis of left knee: Status: Acute Plan We discussed the importance of physical therapy and her motion is improving so I do not think a manipulation is necessary. She is doing well s/p L TKA. We will see her back in 6 weeks Advanced Care Planning Discussion Advance care planning discussed with:: patient Office Procedures GNS Level of Care Nursing/Assessment Patient Status: Established Patient Nursing Assessment/Reassesment: Medication Reconciliation, Update PMH in EMR and Vital Signs Coordination of Care: Complex Care and Chronic Disease 1-5, Education Complex Pt/Fam, Consent,records obtained, informed consent, Results/Orders obtained and Staff clarify orders Special Needs: Language special needs Established Patient Charge Established Patient Point Assignment: 95 Established Patient Point Charge: EP Level 3 (80-115) MA Intake Visit Data Collection New Patient or Established: Established Patient (seen at [facility] within 3 years) Seen by Clinical Staff ONLY (RN/MA): No Maintenance Job Titles Required: Yes PCP or OBGYN visit in last 3 months: Yes Hx Now: No Do You Feel Safe at Home: Yes Authorities Contacted: N/A Questionairres Past Medical History Past Medical History Have you ever been diagnosed with any of the following: Neurological Problems Seizures: No Cardiology Problems Hypercholesterolemia: Yes Congestive Heart Failure: No Edema: No Cellulitis: No Hypertension: Yes Varicose Veins: No Respiratory Problems Chronic Obstructive Pulmonary Disease (COPD): No Pneumonia: No Tuberculosis: No Sleep Apnea: No Smoking: No Smoking Exposure: No Stomache/Intestinal Problems Hepatitis: No Pancreatitis: No Gall Bladder Disease: No Hemorrhoids: No Gastroesophageal Reflux Disease: No Obesity: Yes Genital/Urinary Problems Renal Disease: No Kidney Stones: Yes Reproductive Problems Previous Pregnancies: Yes (X7) Musculoskeletal Problems Arthritis: Yes Head,Eye,Nose,Throat Problems Cataracts: Yes (Left had surgery) Endocrine Problems Diabetes Mellitus Type 1: Yes Diabetes Mellitus Type 2: No Other Problems Hospitalization: No Shingles: No Falls: No Blood Transfusions: No Blood Transfusion Reaction: No Anesthesia Reactions: No Chemotherapy: No Radiation Therapy: No MRSA: No Chicken Pox: No Measles: No Mumps: No Cancer: No Surgical History Total Knee Replacement: Yes (LEFT 12/2024) Pacemaker: No Subjective Visit Visit for: follow up visit, post op #3 and knee (LEFT) Immunization / Flu Flu Vaccine in the Last 12 Months: No Flu Vaccine Exclusion Criteria: No Exclusion Criteria History of Present Illness Chief complaint: LEFT 6 WEEK TKA FU MANIPULATION Patient is a pleasant 69-year-old female with a left greater than right knee pain that has been ongoing for several years. She is doing well s/p L TKA. Her range of motion is only 0 to 105 degrees. Personal History Red flag PMH: BMI BMI Counceling provided: Yes Pain Pain level (0-10): 0 Ambulatory data Ambulatory device: walker Treatments Number of previous injections: 6 Improvement with previous injections: No Number of Physical Therapy sessions: 12 Improvement with PT: No Improvement with NSAIDS: no Review of Systems Review of Systems: All systems negative unless otherwise noted in HPI.
[2025-02-26 13:22] VITALS: BP 147/83; PULSE 72; RESP 18; TEMP 36.4; O2SAT 96; BMI 34.6
--- NOTE | 2025-02-26 13:31 | XR_ITS ---
Examination: Bilateral knees single view Left knee PA lateral axial 3 views TECHNIQUE: Bilateral AP knees standing single view Left knee standing PA flexion, standing lateral, axial left knee 3 views total 4 views Date and time: February 26, 2025 1407 hours INDICATIONS: Knee pain post arthroplasty 3 months ago. FINDINGS: Moderate osteopenia Moderate to advanced narrowing medial joint space right knee No fracture Total left knee arthroplasty. Satisfactory alignment. No patellar dislocation IMPRESSION: Total left knee arthroplasty with satisfactory alignment.
== END 2025-02-26 13:51 | disposition home or self-care (01) ==
LOC: HODSRG 13:10
PROVIDERS: PCP Physician Assistant Medical; Referring Provider Physician Assistant Medical; Supervising Provider Orthopaedic Surgery Adult Reconstructive Orthopaedic Surgery; Visit Provider Orthopaedic Surgery Adult Reconstructive Orthopaedic Surgery
DX: M17.12 Unilateral primary osteoarthritis, left knee (principal); Z96.652 Presence of left artificial knee joint; I10 Essential (primary) hypertension; E78.00 Pure hypercholesterolemia, unspecified; E10.9 Type 1 diabetes mellitus without complications; E66.9 Obesity, unspecified; Z71.3 Dietary counseling and surveillance; Z68.34 Body mass index [BMI] 34.0-34.9, adult
CPT/HCPCS: 73564; 99213; G0463

== ENCOUNTER 2025-03-18 10:00 | Outpatient (RCR) | payer MEDICARE, MEDICAID, SELFPAY ==
--- NOTE | 2025-02-20 14:03 | PT.ODAYNRPT ---
PT Outpatient Daily Note <TATYANA Sharpe - Last Filed: 02/20/25 14:11> OP Daily Note Outpatient Physical Therapy Treatment Date: 02/20/25 Visit Reasons: Left tka Subjective: Pt states she is doing well and is noticing improvements with L knee ROM Objective: See F/S for therex MT: L knee flexion passive stretch 4 x 1 min L knee AROM: 103 L knee AROM post passive stretch: 105 Assessment: Pt tolerated therex well with no increase in pain, minimal verbal cues required to correct form. Pt demonstrated improve gait mechanics with moderate verbal cues required to improve gait; able to self correct. Pt instructed on seated knee flexion stretch with overpressure; demonstrated good understanding with no follow up questions. Knee flexion improved post passive stretch from 103 to 105 degrees, limited due to pain. Plan: Continue with POC Length of Time (minutes) of Treatment: 30 Minutes <Maged Bee PT - Last Filed: 02/20/25 14:32> OP Daily Note Objective: See F/S for therex L knee AROM: 103 L knee AROM post passive stretch: 105 Assessment: Pt tolerated therex well with no increase in pain, minimal verbal cues required to correct form. Pt require verbal cues to increase FARRAH, stride length, and heel strike to improve gait mechanics during gait training. Pt instructed on seated knee flexion stretch with overpressure; demonstrated good understanding with no follow up questions. Knee flexion improved post passive stretch from 103 to 105 degrees, limited due to pain. Procedure Charges <TATYANA Sharpe - Last Filed: 02/20/25 14:11> Therapeutic Exercise 30 minutes: Yes
--- NOTE | 2025-02-22 15:00 | PT.ODAYNRPT ---
PT Outpatient Daily Note <TATYANA Sharpe - Last Filed: 02/22/25 15:08> OP Daily Note Outpatient Physical Therapy Treatment Date: 02/22/25 Visit Reasons: Left tka Subjective: Pt arrived explaining her knee feels stiff due to being a cold room prior to PT. States she is compliant with HEP. Objective: See F/S for therex L knee flexion AROM: 105 degrees//107 degrees Assessment: Pt performed therex well with no increase in pain. Pt required minimum cues to avoid circumducting Lt LE while performing lateral step ups. Lt knee flexion AROM continues to improve and pt confirms seat will continue with seated knee flexion stretch at home. Plan: Continue with POC Length of Time (minutes) of Treatment: 30 Minutes <Maged Bee PT - Last Filed: 02/22/25 15:25> OP Daily Note Assessment: Pt performed therex well with no increase in pain. Pt required minimum cues to avoid circumducting left LE while performing lateral step ups. Lt knee flexion AROM continues to improve and Pt confirms she will continue with seated knee flexion stretch at home. Procedure Charges <TATYANA Sharpe - Last Filed: 02/22/25 15:08> Therapeutic Exercise 30 minutes: Yes
--- NOTE | 2025-02-25 13:51 | PT.ODAYNRPT ---
PT Outpatient Daily Note <TATYANA Sharpe - Last Filed: 02/25/25 13:57> OP Daily Note Outpatient Physical Therapy Treatment Date: 02/25/25 Visit Reasons: Left tka Subjective: Pt states she is doing well and reports Lt knee stiffness. Objective: See F/S for therex Assessment: Pt demo'd improvement with lateral step ups and WBing with Lt LE. Pt performed therex well with no complaints; requires few seated rest breaks due to muscle fatigue. Ice pack applied post session. Plan: Continue with POC Length of Time (minutes) of Treatment: 30 Minutes <Maged Bee PT - Last Filed: 02/25/25 14:13> OP Daily Note Assessment: Pt demo'd improvement with lateral step ups and WBing with Lt LE during exercises. Pt performed therex well with no complaints; requires few seated rest breaks due to muscle fatigue. Ice pack applied post session. Procedure Charges <TATYANA Sharpe - Last Filed: 02/25/25 13:57> Therapeutic Exercise 30 minutes: Yes
--- NOTE | 2025-02-27 13:53 | PT.ODAYNRPT ---
PT Outpatient Daily Note OP Daily Note Outpatient Physical Therapy Treatment Date: 02/27/25 Visit Reasons: Left tka Subjective: Pt's knee is much better. Pt seen surgeon yesterday and he's happy so far with the progress. Surgeon wants patient to continue physical therapy Objective: Please see flow chart for list of ther ex performed Assessment: progressing with knee flexion AROM. Less guarded with knee passive stretch and now stretching is felt more on the rectus femoris vs knee cap. Pt advance to 6 step and frequent cue to decrease hip circumduction with step up. Plan: Continue with PT Length of Time (minutes) of Treatment: 30 Minutes Procedure Charges Therapeutic Exercise 30 minutes: Yes
--- NOTE | 2025-03-05 14:09 | PT.ODAYNRPT ---
PT Outpatient Daily Note OP Daily Note Outpatient Physical Therapy Treatment Date: 03/05/25 Visit Reasons: Left tka Subjective: Pt's knee is better. Pt has been walking more without her cane inside and outside of the house. Objective: Please see flow chart for list of ther ex performed Assessment: progressing with WB with gait and improving form with step up and lateral step up exercises. Added prone knee flexion stretch with strap with good tolerance Plan: Continue with PT Length of Time (minutes) of Treatment: 30 Minutes Procedure Charges Therapeutic Exercise 30 minutes: Yes
--- NOTE | 2025-03-07 11:58 | PT.ODAYNRPT ---
PT Outpatient Daily Note OP Daily Note Outpatient Physical Therapy Treatment Date: 03/07/25 Visit Reasons: Left tka Subjective: Pt is walking more with her cane. Pt feels stable and balance without her cane Objective: Please see flow chart for list of ther ex performed Assessment: difficulty tolerating standing calf stretch due to pain, however, patient was able to complete instructed reps Plan: Continue with PT Length of Time (minutes) of Treatment: 30 Minutes Procedure Charges Therapeutic Exercise 30 minutes: Yes
--- NOTE | 2025-03-11 14:56 | PTNOTE_ITS ---
PT Outpatient Daily Note OP Daily Note Outpatient Physical Therapy Treatment Date: 03/11/25 Visit Reasons: Left tka Subjective: Pt reports L knee is progressing but not where she would like. Objective: Please see flow sheet for ther ex list. Assessment: Pt instructed on step up with proper sequence for initiating and leading with L LE to work on strengthening. Plan: Continue with pOC. Length of Time (minutes) of Treatment: 30 Minutes CHILD DEVELOPMENT CONSULTANT Service Modifier Method I: Divide the number of min of care provided by the CHILD DEVELOPMENT CONSULTANT/JAIRON by the total min of care provided then multiply by 100. If greater than 11 percent modifier is required. Method II: Divide the total time of care provided to patient by 10 (round to the nearest whole number) and add 1 min. to set the minimum time requirement. If treatment total was 60 min., then 10% of 6 min PT CQ modifier applied: CQ Modifier applied Procedure Charges Therapeutic Exercise 30 minutes: Yes
--- NOTE | 2025-03-13 10:50 | PT.ODAYNRPT ---
PT Outpatient Daily Note OP Daily Note Outpatient Physical Therapy Treatment Date: 03/13/25 Visit Reasons: Left tka Subjective: Pt's knee is stiff in the morning. Pt continues to walk longer without her cane. Pt feels safe without the cane. Objective: Left Knee AROM: 105 deg Assessment: Pt encourage to continue stretching into flexion to improve knee flexion AROM. Pt is progressing well and able to WB more with closed chain exercises with less use of hands for balance Plan: Continue with PT Length of Time (minutes) of Treatment: 30 Minutes Procedure Charges Therapeutic Exercise 30 minutes: Yes
--- NOTE | 2025-03-18 10:55 | PT.ODAYNRPT ---
PT Outpatient Daily Note OP Daily Note Outpatient Physical Therapy Treatment Date: 03/18/25 Visit Reasons: Left tka Subjective: Pt's knee is better, however, has been having more knee pain at night especially after prolonged activities. Objective: Please see flow chart for list of ther ex performed Assessment: educated patient that knee pain with prolonged is normal process and normal within her healing time frame since she has transition to cane and at times perform tasks without AD. Pt gave verbal understanding and consent. Pt demonstrate improve WB with step up and lateral step up exercises Plan: Continue with PT Length of Time (minutes) of Treatment: 30 Minutes Procedure Charges Therapeutic Exercise 30 minutes: Yes
== END 2025-03-19 23:59 | disposition home or self-care (01) ==
LOC: CPTX 10:00
PROVIDERS: PCP Orthopaedic Surgery Adult Reconstructive Orthopaedic Surgery; Referring Provider Orthopaedic Surgery Adult Reconstructive Orthopaedic Surgery; Visit Provider Orthopaedic Surgery Adult Reconstructive Orthopaedic Surgery
DX: M25.562 Pain in left knee (principal); R26.2 Difficulty in walking, not elsewhere classified; R26.89 Other abnormalities of gait and mobility; R53.1 Weakness; M17.12 Unilateral primary osteoarthritis, left knee; Z96.652 Presence of left artificial knee joint
CPT/HCPCS: 97110

== ENCOUNTER 2025-04-11 12:51 | Outpatient (AMB) | payer MEDICARE, MEDICAID, SELFPAY ==
[2025-04-11 13:07] VITALS: BP 128/81; PULSE 80; RESP 18; TEMP 36.4; O2SAT 97; BMI 34.9
--- NOTE | 2025-04-11 13:07 | PD.ORTHCLVIS ---
Vital signs 04/11/25 13:07 Height 1.52 m Height Method Measured Weight 80.881 kg Weight Measurement Method Standing Scale BMI 34.9 BP 128/81 Blood Pressure Source Automatic Cuff Blood Pressure Location Left Upper Arm Position Sitting Respiration 18 Pulse 80 Pulse Source Monitor Temp 97.5 F Temp Source Temporal Artery Scan Pulse Oximetry (%) 97 Oxygen Delivery Method Room Air Med/Allergies Allergies & Medications Allergies No Known Allergies Allergy (Verified 04/11/25 13:08) Medication Reconciliation atorvastatin 20 mg tablet 20 mg PO QDAY 09/11/21 [History Confirmed 04/11/25] losartan 25 mg tablet 25 mg PO QDAY 09/11/21 [History Confirmed 04/11/25] ibuprofen 600 mg tablet 600 mg PO Q8H PRN pain 12/11/24 [History Confirmed 04/11/25] metformin 1,000 mg tablet 1,000 mg PO BID 12/11/24 [History Confirmed 04/11/25] omeprazole 20 mg capsule,delayed release 20 mg PO DAILY 12/11/24 [History Confirmed 04/11/25] doxycycline hyclate 100 mg tablet 100 mg PO BID #14 tabs 12/12/24 [Rx Confirmed 04/11/25] sennosides 8.6 mg-docusate sodium 50 mg tablet (Senna-S) 1 tab-cap PO QDAY #30 tabs 12/12/24 [Rx Confirmed 04/11/25] acetaminophen 500 mg tablet (Acetaminophen Extra Strength) 1,000 mg (2 x 500 mg) PO Q6H PRN pain #90 tabs 12/27/24 [Rx Confirmed 04/11/25] oxycodone 5 mg tablet 5 mg PO Q6H PRN pain #28 tabs 12/27/24 [Rx Confirmed 04/11/25] meloxicam 7.5 mg tablet 7.5 mg PO QDAY #45 tabs 01/25/25 [Rx Confirmed 04/11/25] diclofenac sodium 3 % topical gel (Solaraze) 1 applic topical BID #100 grams 04/11/25 [Rx] pregabalin 75 mg capsule 75 mg PO BID #60 caps 04/11/25 [Rx] Exam Exam Patient is in no acute distress and is cooperative with the examination today. Breathing is nonlabored. In no respiratory distress. Bilateral extremities were evaluated and demonstrates sensation intact to light touch. Palpable pedal pulses are present. No significant edema is present. Bilateral hips were examined. The patient has no pain with log roll of the hips. Internal rotation to 30 degrees and external rotation to 30 degrees is painless. Negative FADIR. Left knee incision is clean dry intact. Range of motion is 0 to 105 degrees Xrays demonstrate a cementless total knee replacement on 02/26/2025 in good alignment and position Assessment and Plan Problem List (1) Arthritis of left knee: Status: Acute Plan We discussed the importance of physical therapy and her motion is great. She is doing well s/p L TKA. We will see her back in 3 months and give her a prescription for more PT Advanced Care Planning Discussion Advance care planning discussed with:: patient Office Procedures GNS Level of Care Nursing/Assessment Patient Status: Established Patient Nursing Assessment/Reassesment: Medication Reconciliation, Update PMH in EMR and Vital Signs Coordination of Care: Complex Care and Chronic Disease 1-5, Education Complex Pt/Fam, Consent,records obtained, informed consent, Results/Orders obtained and Staff clarify orders Established Patient Charge Established Patient Point Assignment: 95 Established Patient Point Charge: EP Level 3 (80-115) MA Intake Visit Data Collection New Patient or Established: Established Patient (seen at [facility] within 3 years) Reason for Visit:: 6 WEEK F/U Seen by Clinical Staff ONLY (RN/MA): No Training And Development Assistant Required: Yes PCP or OBGYN visit in last 3 months: Yes Hx Now: No Do You Feel Safe at Home: Yes Authorities Contacted: N/A Questionairres Past Medical History Past Medical History Have you ever been diagnosed with any of the following: Neurological Problems Seizures: No Cardiology Problems Hypercholesterolemia: Yes Congestive Heart Failure: No Edema: No Cellulitis: No Hypertension: Yes Varicose Veins: No Respiratory Problems Chronic Obstructive Pulmonary Disease (COPD): No Pneumonia: No Tuberculosis: No Sleep Apnea: No Smoking: No Smoking Exposure: No Stomache/Intestinal Problems Hepatitis: No Pancreatitis: No Gall Bladder Disease: No Hemorrhoids: No Gastroesophageal Reflux Disease: No Obesity: Yes Genital/Urinary Problems Renal Disease: No Kidney Stones: Yes Reproductive Problems Previous Pregnancies: Yes (X7) Musculoskeletal Problems Arthritis: Yes Head,Eye,Nose,Throat Problems Cataracts: Yes (Left had surgery) Endocrine Problems Diabetes Mellitus Type 1: Yes Diabetes Mellitus Type 2: No Other Problems Hospitalization: No Shingles: No Falls: No Blood Transfusions: No Blood Transfusion Reaction: No Anesthesia Reactions: No Chemotherapy: No Radiation Therapy: No MRSA: No Chicken Pox: No Measles: No Mumps: No Cancer: No Surgical History Total Knee Replacement: Yes (LEFT 12/2024) Pacemaker: No Subjective Visit Visit for: follow up visit and knee Immunization / Flu Flu Vaccine in the Last 12 Months: No Flu Vaccine Exclusion Criteria: No Exclusion Criteria History of Present Illness Chief complaint: 6 WEEK F/U Patient is a pleasant 69-year-old female with a left greater than right knee pain that has been ongoing for several years. She is doing well s/p L TKA. Her range of motion is 0 to 105 degrees. She continues to improve and reports mild pain medially. Personal History Red flag PMH: BMI BMI Counceling provided: Yes Pain Pain level (0-10): 0 Ambulatory data Ambulatory device: walker Treatments Number of previous injections: 6 Improvement with previous injections: No Number of Physical Therapy sessions: 12 Improvement with PT: No Improvement with NSAIDS: no Review of Systems Review of Systems: All systems negative unless otherwise noted in HPI.
== END 2025-04-11 13:17 | disposition home or self-care (01) ==
LOC: HODSRG 12:51
PROVIDERS: PCP Orthopaedic Surgery Adult Reconstructive Orthopaedic Surgery; Referring Provider Orthopaedic Surgery Adult Reconstructive Orthopaedic Surgery; Supervising Provider Orthopaedic Surgery Adult Reconstructive Orthopaedic Surgery; Visit Provider Orthopaedic Surgery Adult Reconstructive Orthopaedic Surgery
DX: Z47.1 Aftercare following joint replacement surgery (principal); Z96.652 Presence of left artificial knee joint; I10 Essential (primary) hypertension; E10.9 Type 1 diabetes mellitus without complications; Z79.84 Long term (current) use of oral hypoglycemic drugs; E66.9 Obesity, unspecified; Z68.34 Body mass index [BMI] 34.0-34.9, adult
CPT/HCPCS: 99213; G0463

== ENCOUNTER 2025-04-19 13:30 | Outpatient (RCR) | payer MEDICARE, MEDICAID, SELFPAY ==
--- NOTE | 2025-03-20 11:24 | PT.ODAYNRPT ---
PT Outpatient Daily Note OP Daily Note Outpatient Physical Therapy Treatment Date: 03/20/25 Visit Reasons: Left TKA Subjective: Pt's knee feels stiff and aches withing the knee. Pt continues to have more confidence walking without her cane. Objective: Please see flow chart for list of ther ex performed Assessment: continue to improve with step up and lateral step up form with 6 step. fatigue with side step and monster walk using RTB and require rest breaks Plan: Continue with PT Length of Time (minutes) of Treatment: 30 Minutes Procedure Charges Therapeutic Exercise 30 minutes: Yes
--- NOTE | 2025-03-26 15:09 | PT.ODAYNRPT ---
PT Outpatient Daily Note OP Daily Note Outpatient Physical Therapy Treatment Date: 03/26/25 Visit Reasons: Left TKA Subjective: Pt's knee is better. Pt does not have any concerns to report. Objective: Please see flow chart for list of ther ex performed Assessment: improved hip control and form with side step and monster walk using RTB. Cues to pace with TG squat to work on eccentric control in loading phase Plan: Continue with PT Length of Time (minutes) of Treatment: 30 Minutes Procedure Charges Therapeutic Exercise 30 minutes: Yes
--- NOTE | 2025-03-29 15:01 | PT.ODAYNRPT ---
PT Outpatient Daily Note OP Daily Note Outpatient Physical Therapy Treatment Date: 03/29/25 Visit Reasons: Left TKA Subjective: Pt c/o stiff and painful knee. Objective: Please see flow sheet for ther ex list. Assessment: Pt guarded during fwd lunge exercise due to pain response to stretch exercise. Plan: Continue with pOC. Length of Time (minutes) of Treatment: 30 Minutes Procedure Charges Therapeutic Exercise 30 minutes: Yes
--- NOTE | 2025-04-02 14:37 | PT.ODAYNRPT ---
PT Outpatient Daily Note OP Daily Note Outpatient Physical Therapy Treatment Date: 04/02/25 Visit Reasons: Left TKA Subjective: Pt's knee feels good. Pt is using less cane at home. Objective: Please see flow chart for list of ther ex performed Assessment: Less cues to correct knee position with lunges and side lunges today. Pt continue to improve with form during step up and lateral step up exercises Plan: Continue with PT Length of Time (minutes) of Treatment: 30 Minutes Procedure Charges Therapeutic Exercise 30 minutes: Yes
--- NOTE | 2025-04-04 14:06 | PT.ODAYNRPT ---
PT Outpatient Daily Note OP Daily Note Outpatient Physical Therapy Treatment Date: 04/04/25 Visit Reasons: Left TKA Subjective: Pt has follow up with surgeon next week on . Objective: Please see flow sheet for ther ex list. Assessment: Pt has completed 24 visits, pt to follow up with surgeon for further instructions. Pt reports progress with L knee . Plan: Pt following up with surgeon for further instructions. Length of Time (minutes) of Treatment: 30 Minutes Procedure Charges Therapeutic Exercise 30 minutes: Yes
--- NOTE | 2025-04-11 14:51 | PT.ODAYNRPT ---
PT Outpatient Daily Note OP Daily Note Outpatient Physical Therapy Treatment Date: 04/11/25 Visit Reasons: Left TKA Subjective: Pt reports L knee is doing better. Objective: Please see flow sheet for ther ex list. Assessment: Progressing interventions per post op protocol. Plan: Continue with POC. Length of Time (minutes) of Treatment: 30 Minutes DIGITAL IMAGING SPECIALIST Service Modifier Method I: Divide the number of min of care provided by the DIGITAL IMAGING SPECIALIST/JAIRON by the total min of care provided then multiply by 100. If greater than 11 percent modifier is required. Method II: Divide the total time of care provided to patient by 10 (round to the nearest whole number) and add 1 min. to set the minimum time requirement. If treatment total was 60 min., then 10% of 6 min PT CQ modifier applied: CQ Modifier applied Procedure Charges Therapeutic Exercise 30 minutes: Yes
--- NOTE | 2025-04-16 11:47 | PT.ODAYNRPT ---
PT Outpatient Daily Note OP Daily Note Outpatient Physical Therapy Treatment Date: 04/16/25 Visit Reasons: Left TKA Subjective: Pt's knee is good. Pt does not have any concerns at the moment. Objective: Please see flow chart for list of ther ex performed Assessment: tolerate exercises with minimal pain Plan: Continue with PT Length of Time (minutes) of Treatment: 30 Minutes Procedure Charges Therapeutic Exercise 30 minutes: Yes
--- NOTE | 2025-04-19 14:05 | PTNOTE_ITS ---
PT Outpatient Daily Note OP Daily Note Outpatient Physical Therapy Treatment Date: 04/19/25 Visit Reasons: Left TKA Subjective: Pt c/o L leg being sore and fatigued, did a lot of walking this morning. Objective: Please see flow sheet for ther ex list. Assessment: Pt ambulating with decrease gait speed and poor step height on L LE, c/o soreness. Held resistance and weights for todays PT session to accommodate reported pain. Plan: Continue with poC. Length of Time (minutes) of Treatment: 30 Minutes NEGATIVE CLEANER Service Modifier Method I: Divide the number of min of care provided by the NEGATIVE CLEANER/JAIRON by the total min of care provided then multiply by 100. If greater than 11 percent modifier is required. Method II: Divide the total time of care provided to patient by 10 (round to the nearest whole number) and add 1 min. to set the minimum time requirement. If treatment total was 60 min., then 10% of 6 min PT CQ modifier applied: CQ Modifier applied Procedure Charges Therapeutic Activity 30 minutes: Yes
== END 2025-04-19 23:59 | disposition home or self-care (01) ==
LOC: CPTX 13:30
PROVIDERS: PCP Orthopaedic Surgery Adult Reconstructive Orthopaedic Surgery; Referring Provider Orthopaedic Surgery Adult Reconstructive Orthopaedic Surgery; Visit Provider Orthopaedic Surgery Adult Reconstructive Orthopaedic Surgery
DX: Z47.1 Aftercare following joint replacement surgery (principal); Z96.652 Presence of left artificial knee joint; M25.562 Pain in left knee; M25.662 Stiffness of left knee, not elsewhere classified; R26.2 Difficulty in walking, not elsewhere classified; R26.89 Other abnormalities of gait and mobility
CPT/HCPCS: 97110; 97530

== ENCOUNTER 2025-05-07 15:30 | Outpatient (RCR) | payer MEDICARE, MEDICAID, SELFPAY ==
--- NOTE | 2025-04-24 15:35 | PT.ODAYNRPT ---
PT Outpatient Daily Note OP Daily Note Outpatient Physical Therapy Treatment Date: 04/24/25 Visit Reasons: left TKA Subjective: Pt reports knee is stiff and painful today, feels it is due to the cold weather. Objective: Please see flow sheet for ther ex list. Assessment: Pt ambulating in clinic today with increase limp due to pain with WB on L LE. Plan: Continue with poC. Length of Time (minutes) of Treatment: 30 Minutes DIRECTOR COUNCIL ON AGING Service Modifier Method I: Divide the number of min of care provided by the DIRECTOR COUNCIL ON AGING/JAIRON by the total min of care provided then multiply by 100. If greater than 11 percent modifier is required. Method II: Divide the total time of care provided to patient by 10 (round to the nearest whole number) and add 1 min. to set the minimum time requirement. If treatment total was 60 min., then 10% of 6 min PT CQ modifier applied: CQ Modifier applied Procedure Charges Therapeutic Exercise 30 minutes: Yes
--- NOTE | 2025-04-26 15:31 | PT.ODAYNRPT ---
PT Outpatient Daily Note OP Daily Note Outpatient Physical Therapy Treatment Date: 04/26/25 Visit Reasons: left TKA Subjective: Pt reports L knee is stiff today. Objective: Please see flow sheet for ther ex list. Assessment: Pt presents with stiff knee today, focused on stretching for todays session to accommodate pt complaints. Plan: PTOR to assess for note, pt has one visit left. Length of Time (minutes) of Treatment: 30 Minutes Procedure Charges Therapeutic Exercise 30 minutes: Yes
--- NOTE | 2025-05-07 16:01 | PT.ODS1RPT ---
PT OP Progress/Discharge Note Date of Service: 05/07/25 Progress Note/DC Note Progress Note/Discharge Note: DC Note Patient Information Visit Reasons: left TKA Medical Diagnosis: Left Knee OA; Left Knee Pain Treatment Dx #1: Left Knee Mobility Deficits Treatment Dx #2: Left Knee Pain Service Continue Service or Discharge: Discharge Discharge Date: 05/07/25 Status Subjective: Pt's knee is much better. Pt has been able to stand, walk, perform chores, and ADLs with less limitation. Pt still notice stiffness on cold days or change in weather. Pt will be heading to [place] for several weeks. Objective: Left Knee AROM: -7 deg to 101 deg Left Knee MMTs: grossly 4/5 Left Hip MMTs: grossly 4-/5 SLS: 10 sec Assessment: Pt demonstrate slow improvement with knee AROM and strength, however, functional to resume ADLs and ambulate with less limitation. Pt has met most goals set in therapy except ROM. At this time Pt will be d/c from care due to heading out of country [place]. Pt is unsure when she will return. Pt was instructed on HEP last session and educated to continue exercises to maintain overall mobility. Pt performed all exercises safely, thank you for your referrals. Plan: D/C home with HEP and follow up with MD CORDOVA Procedure Charges Therapeutic Exercise 30 minutes: Yes
== END 2025-05-19 23:59 | disposition home or self-care (01) ==
LOC: CPTX 15:30
PROVIDERS: PCP Orthopaedic Surgery Adult Reconstructive Orthopaedic Surgery; Referring Provider Orthopaedic Surgery Adult Reconstructive Orthopaedic Surgery; Visit Provider Orthopaedic Surgery Adult Reconstructive Orthopaedic Surgery
DX: Z47.1 Aftercare following joint replacement surgery (principal); Z96.652 Presence of left artificial knee joint; M25.562 Pain in left knee; R53.1 Weakness; R26.2 Difficulty in walking, not elsewhere classified; R26.89 Other abnormalities of gait and mobility
CPT/HCPCS: 97110